=== PATIENT | male | born 1960 | race Caucasian/White ===

== ENCOUNTER 2017-03-10 09:05 | Emergency (ER) | payer BC ==
[2017-03-10 09:30] VITALS: BP 128/75
[2017-03-10] MEDS ORDERED: Orphenadrine Citrate IV* 30 MG/ML 2 ML VIAL IM ONE (09:47)
[2017-03-10] MEDS ORDERED: Ketorolac INJ* 60 MG/2 ML VIAL IM ONE (09:47)
--- NOTE | 2017-03-10 09:59 | ED ---
Lower Extremity - HPI Summary HPI Summary: 56 male presents to ED BIBA after sustaining a fall down 3 steps while walking out of his house this morning. States he slipped on ice. His right leg got stuck underneath him and twisted however he fell forward catching himself with his hands. Has not taken any medications for pain. Did not hit his head and denies neck pain. No other complaints or injuries at this time. States pain shoots up his leg and into his groin with palpation and movement. Denies any obvious deformity. Did apply light weight while standing however did increase his pain. Admits to some intermittent numbness/tingling sensation. No PMHx. No ankle or lower leg pain. Denies hip pain. - History of Current Complaint Chief Complaint: EDExtremityLower Stated Complaint: RT LEG INJURY Time Seen by Provider: 03/10/17 09:22 Hx Obtained From: Patient, EMS Onset of Pain: Immediate Severity Initially: Moderate Severity Currently: Severe Pain Intensity: 9 Pain Scale Used: 0-10 Numeric Timing: Constant Location: Is Discrete @ - right anterior thigh above knee Character Of Pain: Sharp, Aching, Spasmodic Associated Signs And Symptoms: Positive: Negative Aggravating Factor(s): Standing, Ambulation, Movement, Weight Bearing Alleviating Factor(s): Rest Able to Bear Weight: No - due to pain Legs: 1 - pain - Allergies/Home Medications Allergies/Adverse Reactions: Allergies Allergy/AdvReac Type Severity Reaction Status Date / Time No Known Allergies Allergy Verified 03/10/17 10:50 PMH/Surg Hx/FS Hx/Imm Hx Endocrine/Hematology History: Denies: Hx Diabetes Cardiovascular History: Denies: Hx Hypertension Respiratory History: Denies: Hx Asthma - Surgical History Surgery Procedure, Year, and Place: n/a - Immunization History Immunizations Up to Date: Yes Infectious Disease History: No Infectious Disease History: Denies: Traveled Outside the [place] in Last 30 Days - Family History Known Family History: Positive: None - Social History Alcohol Use: None Substance Use Type: Reports: None Smoking Status (MU): Never Smoked Tobacco Review of Systems Constitutional: Negative Cardiovascular: Negative Respiratory: Negative Positive: Arthralgia, Myalgia, Decreased ROM Skin: Negative Neurological: Negative All Other Systems Reviewed And Are Negative: Yes Physical Exam Triage Information Reviewed: Yes Vital Signs On Initial Exam: Initial Vitals Temp Pulse Resp BP Pulse Ox 97.0 F 64 16 128/75 100 03/10/17 09:20 03/10/17 09:20 03/10/17 09:20 03/10/17 09:20 03/10/17 09:20 Vital Signs Reviewed: Yes Appearance: Positive: Well-Appearing, Well-Nourished, Pain Distress - moderate to severe Skin: Positive: Warm, Skin Color Reflects Adequate Perfusion, Dry, Other - no bruising or obvious deformity, no sign of trauma to skin. Negative: Tender, Cyanosis @, Pale, Erythema @ Head/Face: Positive: Normal Head/Face Inspection. Negative: Scalp Eyes: Positive: EOMI, JEAN-PAUL, Conjunctiva Clear ENT: Positive: Hearing grossly normal Neck: Positive: Supple, Nontender Respiratory/Lung Sounds: Positive: Clear to Auscultation, Breath Sounds Present. Negative: Rales, Rhonchi, Wheezes Cardiovascular: Positive: Normal, RRR, Pulses are Symmetrical in both Upper and Lower Extremities. Negative: Murmur, Rub Abdomen Description: Positive: Nontender Bowel Sounds: Positive: Present Musculoskeletal: Positive: Limited @ - right LE due to pain, Pain @ - anterior right thigh, distal femur area above right knee on palpation and with movement, Other - no obvious deformity noted. patella appears intact. exquisetly tender on palpation of distal quadricep at insertion. better with passive ROM and straightening of right LE compared to bending.. Negative: Interruption @, Abnormal @, Edema Left, Edema Right Neurological: Positive: Normal, Sensory/Motor Intact, Alert, Oriented to Person Place, Time, CN Intact II-III, NV Bundle Intact Distally, Unable to Assess Gait - due to pain - Amy Coma Scale Best Eye Response: 4 - Spontaneous Best Motor Response: 6 - Obeys Commands Best Verbal Response: 5 - Oriented Diagnostics - Vital Signs Vital Signs Temp Pulse Resp BP Pulse Ox 03/10/17 09:20 97.0 F 64 16 128/75 100 - Laboratory Lab Statement: Any lab studies that have been ordered have been reviewed, and results considered in the medical decision making process. - Radiology right femur Xray Interpretation: No Acute Changes - 4 views of the right femur demonstrates no fracture. Calcification of the quadriceps tendon at the patellar chest is noted. Radiology Interpretation Completed By: Radiologist - and myself Re-Evaluation - Re-Evaluation First Eval Re-Evaluation Time: 11:00 Change: Improved - had significant relief after medication Lower Extremity Course/Dx - Course Course Of Treatment: given toradol and norflex for pain and muscles spasms. no other pain or injuries other than right distal femur/anterior thigh. did not hit head, no neck pain or hip pain. xray obtained and negative. appears to have possibly suffered from a muscle strain/tear of quadricep due to PE and JUAN JOSE. Normal vitals. Patient is aware of worsening signs/symptoms to watch out for. Follow up PCP. heat/ice. Refrain from use. crutches until able to bear weight. kong bandage applied. send home on muscle relaxer and ibuprofen. also encourage topical analgesics sold OTC. patient agrees/understands. no other concerns for other etiology at this time. - Diagnoses Differential Diagnosis/HQI/PQRI: Positive: Contusion, Dislocation, Fracture ( Closed), Sprain, Strain Provider Diagnoses: Muscle strain of right thigh, Right leg pain Discharge - Discharge Plan Condition: Stable Disposition: HOME Prescriptions: Cyclobenzaprine TAB* [Flexeril 10 MG TAB*] 10 mg PO BID #15 tab Ibuprofen TAB* [Motrin TAB* 600 MG] 600 mg PO Q6H PRN #30 tab PRN Reason: Pain Patient Education Materials: Muscle Strain (ED), Musculoskeletal Pain (ED) Forms: *Work Release Referrals: Non Staff,Doctor [Primary Care Provider] - [facility] [place] [facility]YSICIAN REFERRAL [Outside] Quincy Lewis MD [Medical Doctor] - Additional Instructions: Keep kong bandage applied. Recommend trying over the counter compression braces over thigh for support and swelling. Use crutches until comfortable to bear weight. Continue taking medication as prescribed while symptoms persist. Take ibuprofen with food. Do not take any ibuprofen until tomorrow, you had today's maximum dose. You may supplement with tylenol. Do not drive while taking muscle relaxer. Rest, ice today and heating pads for the next 3-5 days or while symptoms persist. Any new or worsening symptoms please seek medical attention promptly. Follow up with PCP for re-evaluation.
--- NOTE | 2017-03-10 10:39 | RAD ---
Indication: Right hip and femur pain. 4 views of the right femur demonstrates no fracture. Calcification of the quadriceps tendon at the patellar chest is noted. IMPRESSION: Unremarkable right femur.
== END 2017-03-10 11:54 | disposition home or self-care (01) ==
LOC: ED 09:05
DX: S76.911A Strain of unspecified muscles, fascia and tendons at thigh level, right thigh, initial encounter (principal); W10.9XXA Fall (on) (from) unspecified stairs and steps, initial encounter; Y93.9 Activity, unspecified; Y92.9 Unspecified place or not applicable
CPT/HCPCS: 96372; 99282; J1885; J2360

== ENCOUNTER → 2017-03-28 08:28 | Day surgery (SDC) | payer OTHER ==
[~2017-03-28 08:28] MED LIST: Acetaminophen TAB* 325 MG PO PRN; Buffered Lidocaine 0.9% SYRIN* 5 ML/SYR SYRINGE INTRADERM ONE; Buffered Lidocaine 0.9% SYRIN* 5 ML/SYR SYRINGE ONE; Bupivacaine 0.5% SDV PF* 10-30ML VIAL ONE; Dexamethasone IV* 4 MG/ML 1 ML (4 MG) ONE; DiMENhydriNATE IV* 50 MG/ML VIAL IV PUSH PRN; Famotidine IV* 10 MG/ML 2 ML (20 mg) ONE; HYDROcodone/ACETAMIN 5-325 MG* 1 TAB ONE; HYDROcodone/ACETAMIN 5-325 MG* 1 TAB PO PRN; HYDROmorphone INJ* 1 MG/ML CARPUJECT SYRINGE IV PRN; Ketorolac INJ* 30 MG/ML 1 ML VIAL ONE; Labetalol IV* 5 MG/ML 20 ML VIAL ONE; Midazolam* 1 MG/ML 2 ML VIAL (2 MG) ONE; Naloxone* 0.4 MG/ML 1 ML VIAL IV PRN; Ondansetron INJ* 2 MG/ML VIAL IV PRN; PROCHLORPERAZINE INJ 5 MG/ML 2 ML VIAL IV PRN; Propofol* 10 MG/ML 20 ML BTL IV PUSH ONE; ceFAZolin 2 GM PREMIX (*) 2 GM/50 ML BAG IVPB ONE; fentaNYL* 50 MCG/ML 2 ML VIAL (100 MCG VIAL) ONE
[2017-03-28] MEDS: fentaNYL* 50 MCG/ML 2 ML VIAL (100 MCG VIAL) IV PRN ×3 (12:36→13:01)
[2017-03-28 15:15] VITALS: BP 135/65
--- NOTE | 2017-03-28 23:02 | OP ---
OPERATIVE REPORT: DATE OF OPERATION: 03/28/17 DATE OF : 64 SURGEON: Quincy Lewis MD LANGUAGE SPECIALIST: FOX Abraham A physician floral assistant was required for the length of procedure for positioning, retraction, instrumen tation and closure. ANESTHESIOLOGIST: Elieser Peters MD ANESTHESIA: General anesthesia, femoral nerve block anesthesia, regional. PRE-OP DIAGNOSIS: Right distal quadriceps tendon tear. POST-OP DIAGNOSIS: Right distal quadriceps tendon tear. OPERATIVE PROCEDURE: Right open distal quadriceps tendon repair. IV FLUIDS: 700 cc crystalloid. ANTIBIOTICS: Ancef 2 g IV. SPECIMEN: None. IMPLANTS: FiberWire #5 suture. TOURNIQUET TIME: 82 minutes at 300 mmHg. COMPLICATIONS: None. ESTIMATED BLOOD LOSS: Minimal. 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 The patient presented to me and I ordered an MRI scan. MRI demonstrated full- thickness tear in the rectus femoris and some low-grade partial tearing of the other quadriceps tendons. The patient and I discussed partial versus full-thickness tears of the quadriceps tendon and operativ e versus nonoperative management. We opted to go with operative management. Discussed risks and potential complications of surgery including bleeding, infection, nerve or blood vessel injury, blood clot, knee pain, stiffness, osteoarthritis, quadriceps rerupture. DESCRIPTION OF PROCEDURE: The patient signed written consent in preoperative holding. Operative ext remity was marked in preoperative holding. The patient had regional femoral nerve block by Dr. Carmen cunningham in preoperative holding. The patient was taken back to the operating room and placed supine on the operating room table. The patient was sedated and intubated. The patient had a right proximal thigh tourniquet placed, but not elevated. The patient had 4-blanke t bump placed under the right hemipelvis to undo right lower extremity external rotation, at rest. A lateral thigh post was also placed to prevent external rotation in the right lower extremity. The right lower extremity was prepped. Chlorhexidine was used about the knee. The patient had fully intact skin, but had a mild callus associated with prepatellar kneeling with work. To be more clear , no prepatellar bursitis. No callus, but just thickened skin was noted about the prepatellar bursa. Draping performed. Time-out performed. Esmarch was applied and tourniquet was elevated at 300 mmHg. A bump was placed under the knee so that it would flex. An anterior midline longitudinal skin incisi on was made from 10 cm proximal to approximately 4 cm distal to the patella. Knife was changed and d issection was continued down to the extensor mechanism. Quadriceps tendon, rectus femoris was immedi ately visualized. Defined layers nicely so quadriceps was nicely visualized. There was a stump of rectus femoris remai jessica about the patella, very short. This was debrided with rongeur, Bovie electrocautery, and curett e until I got down to a surface of bone. I then used a round-tipped dinorah to further prepare the bone for excellent healing of bone to tendon. Looking at the tear shape, the patient had a full-thickness tear of the rectus femoris with some retr action. Laterally, not at the level of the patella, but several centimeters proximal to it, there wa s a transverse tear in vastus lateralis. The vastus medialis looked fully intact. Some of the vastu s medialis was peeled off the proximal most extent of the patella prior to the preparation of the bon e surface. Three tunnels were created in the patella, longitudinal, using a 2.0 mm drill bit. Passing sutures, P rolene 2-0 were placed through each of the 3 tunnels. I then directed my attention to the quadriceps tendon. I placed two Krackow, stitches in the rectus femoris tendon and some surrounding additional quadriceps. Into the more peripheral of the 2 stitches both medial and lateral, I incorporated some vastus medialis and vastus lateralis into the repair. FiberWire #5 was used for the Krackow stitches. That was shuttled through the patellar bone tunnels using the passing stitches. I was careful to shuttle the suture to the medial and lateral side, deep to patellar tendon such that no patellar tendon fibers would be caught within tied suture and strangulated. Knots were tied with the knee fully extended. I then reinforced the repair with multiple [id number] and simple stitches using Ethibond 0 sutur e. Including in this was the transverse rent in the vastus lateralis. I also brought together the andrew martin medialis and rectus femoris tissues with multiple permanent stitches using Ethibond suture. I reinforced the repair as well both centrally and medially and laterally with [id number] and simp le stitches using Vicryl 0 suture. I tested the repair. The knee with gravity came to 45 degrees of flexion without significant gaping at the repair site. Irrigation. Closure of the subcutaneous layer with buried simple stitches using Vicryl 2-0 suture. Closure of the skin with eduard. Xeroform, 4x4s, ABDs, sterile Webril. Farzad bandage from foot to pr oximal thigh. Tourniquet was dropped. Knee brace locked in extension. Cooling unit. The patient wa s then awakened. DISPOSITION: The patient will have Percocet as needed for pain control, aspirin for DVT prophylaxis, and Keflex for infection prophylaxis. He will remain in the knee brace in fully extension at all ti mes. He can be partial weightbearing with crutches in that knee brace in full extension. Dressing c hanges were listed on instruction sheet and discussed with the patient's . The patient will foll ow up with me in clinic in 10 to 14 days. I instructed the patient to make a physical therapy appoin tment for just after that clinic visit that something like 14 to 16 days postoperative. [id number]/[facility] #: [id number]
== END | disposition home or self-care (01) ==
LOC: OR 08:28
PROVIDERS: ATTEND Orthopaedic Surgery
DX: S76.101A Unspecified injury of right quadriceps muscle, fascia and tendon, initial encounter (principal); F17.210 Nicotine dependence, cigarettes, uncomplicated; W00.1XXA Fall from stairs and steps due to ice and snow, initial encounter; Y92.9 Unspecified place or not applicable; Y99.0 Civilian activity done for income or pay
CPT/HCPCS: J0690; J1100; J1885; J2250; J2704; J3010